=== PATIENT | male | born 1985 | race Caucasian/White ===

== ENCOUNTER 2017-11-22 09:10 | Emergency (ER) | payer OTHER ==
[~2017-11-22] VITALS: Ht 177.8 cm; Wt 81.8 kg
[2017-11-22 11:02] VITALS: BP 140/74
== END 2017-11-22 11:49 | disposition home or self-care (01) ==
LOC: EMS 09:13
DX: S51.811A Laceration without foreign body of right forearm, initial encounter (principal); F17.210 Nicotine dependence, cigarettes, uncomplicated; F12.90 Cannabis use, unspecified, uncomplicated; W26.2XXA Contact with edge of stiff paper, initial encounter; Y93.89 Activity, other specified; Y92.89 Other specified places as the place of occurrence of the external cause; Y99.8 Other external cause status
CPT/HCPCS: 12002; 99283